=== PATIENT | female | born 1960 ===

== ENCOUNTER 2022-01-21 16:33 | Outpatient (REF) | payer BC, SELFPAY ==
[2022-01-22 14:40] LABS: COVID-19 RT-PCR UVMMC Result Negative (Negative)
== END 2022-01-21 16:34 | disposition home or self-care (01) ==
LOC: LBN 16:33
PROVIDERS: Visit Provider Physician Assistant Medical
DX: Z20.822 Contact with and (suspected) exposure to COVID-19 (principal); J32.9 Chronic sinusitis, unspecified
CPT/HCPCS: U0003